=== PATIENT | male | born 1970 | race Caucasian/White ===

== ENCOUNTER 2021-08-04 10:24 | Outpatient (CLI) | payer BC ==
[2021-08-04 11:29] LABS: #Eosinphils 0.3 10x3/uL (0.0-0.5); #Monocytes 0.5 10x3/uL (0.0-1.1); #Neutrophils 4.4 10x3/uL (1.5-8.4); %Basophils 0.4 % (0.0-2.0); %Eosinophils 3.6 % (0.0-6.0); %Lymphocytes 24.7 % (18.0-47.0); %Monocytes 7.8 % (0.0-10.0); %Neutrophils 63.4 % (40.0-75.0); Hemoglobin 14.2 g/dL (13.5-17.5); Mean Corpuscular HGB CONC 33.1 g/dL (32.0-36.0); Mean Corpuscular Hemoglobin 28.9 pg (27.0-33.0); Mean Corpuscular Volume 87.2 fl (81.2-95.1); Platelet Count 175 10x3/uL (150-450); RBC Distribution Width 13.2 % (11.5-14.5); Red Blood Cell (RBC) Count 4.92 10x6/uL (4.32-5.72); White Blood Cell (WBC) Count 6.9 10x3/uL (3.5-10.5)
[2021-08-04 11:50] LABS: ALT (SGPT) 14 U/L (8-55); AST (SGOT) 15 U/L (5-34); Albumin 4.1 g/dL (3.5-5.0); Alkaline Phosphatase 62 U/L (40-110); Anion Gap 13 mmol/L (10-20); BUN (Urea Nitrogen) 16 mg/dL (8.4-25.7); Bilirubin, Total 0.6 mg/dL (0.2-1.2); Calc. Creatinine Clearance 0 mL/min (70-130); Calcium 8.9 mg/dL (7.8-10.44); Carbon Dioxide 27 mmol/L (22-29); Chloride 108 mmol/L (98-107); Globulin 2.7 g/dL (2.4-3.5); Glucose 139 mg/dL (70-105); Protein, Total 6.8 g/dL (6.0-8.3); Sodium 144 mmol/L (136-145)
[2021-08-05 11:01] LABS: SARS-CoV-2 PCR by NAA Not Detected (NotDetected)
== END 2021-08-04 10:25 | disposition home or self-care (01) ==
LOC: LABBT 10:24
PROVIDERS: ATTEND Internal Medicine Cardiovascular Disease
DX: Z01.812 Encounter for preprocedural laboratory examination (principal); I25.5 Ischemic cardiomyopathy; Z20.822 Contact with and (suspected) exposure to COVID-19
CPT/HCPCS: 80053; 85025; U0003; U0005

== ENCOUNTER 2021-08-07 05:50 | Day surgery (SDC) | payer BC ==
[2021-08-06 11:44] VITALS: BMI 34.4
[2021-08-07] MEDS ORDERED: Nitroglycerin 100MG/250ML BOT 250 ML ONE (06:36)
[2021-08-07] MEDS ORDERED: Verapamil 5 MG/2 ML VIAL ONE (06:36)
[2021-08-07] MEDS ORDERED: Heparin 10,000 UNITS/ 10 ML VIAL ONE (06:36)
[2021-08-07] MEDS ORDERED: Fentanyl 100 MCG/2 ML VIAL ONE (07:10)
[2021-08-07] MEDS ORDERED: Midazolam HCl 2 mg/2 ml Vial ONE (07:10)
[2021-08-07] MEDS ORDERED: Iopamidol 370 76% 100 ML VIAL ONE (09:01)
== END 2021-08-07 10:40 | disposition home or self-care (01) ==
LOC: CCL 05:50
PROVIDERS: ATTEND Internal Medicine Cardiovascular Disease
PROC: B2111ZZ Fluoroscopy of Multiple Coronary Arteries using Low Osmolar Contrast (ICD-10-PCS; principal; 2021-08-07)
PROC: 4A023N7 Measurement of Cardiac Sampling and Pressure, Left Heart, Percutaneous Approach (ICD-10-PCS; principal; 2021-08-07)
DX: I25.10 Atherosclerotic heart disease of native coronary artery without angina pectoris (principal); I25.5 Ischemic cardiomyopathy; I48.0 Paroxysmal atrial fibrillation; I11.0 Hypertensive heart disease with heart failure; I50.23 Acute on chronic systolic (congestive) heart failure; E11.9 Type 2 diabetes mellitus without complications; G47.33 Obstructive sleep apnea (adult) (pediatric); Z79.01 Long term (current) use of anticoagulants; Z79.84 Long term (current) use of oral hypoglycemic drugs; Z79.899 Other long term (current) drug therapy; Z86.16 Personal history of COVID-19
CPT/HCPCS: 93458; 99152; J1644; J2250; J3010; Q9967

== ENCOUNTER 2022-04-27 12:24 | Outpatient (CLI) | payer BC ==
[2022-04-27 12:47] LABS: Hemoglobin 14.9 g/dL (13.5-17.5); Mean Corpuscular Hemoglobin 31.1 pg (27.0-33.0); Mean Corpuscular Volume 88.9 fl (81.2-95.1); Mean Platelet Volume 10.1 fl (7.4-10.4); Platelet Count 176 10x3/uL (150-450); RBC Distribution Width 12.2 % (11.5-14.5); Red Blood Cell (RBC) Count 4.79 10x6/uL (4.32-5.72); White Blood Cell (WBC) Count 6.5 10x3/uL (3.5-10.5)
[2022-04-27 13:02] LABS: Prothrombin Time 10.9 sec (9.5-12.1)
[2022-04-27 13:20] LABS: Anion Gap 14 mmol/L (10-20); BUN (Urea Nitrogen) 14 mg/dL (8.4-25.7); Calc. Creatinine Clearance 0 mL/min (70-130); Calcium 8.7 mg/dL (7.8-10.44); Carbon Dioxide 24 mmol/L (22-29); Chloride 109 mmol/L (98-107); Estimated GFR 78; Glucose 143 mg/dL (70-105); Potassium 3.8 mmol/L (3.5-5.1); Sodium 143 mmol/L (136-145)
== END 2022-04-27 12:25 | disposition home or self-care (01) ==
LOC: LABBT 12:24
PROVIDERS: ATTEND Internal Medicine Cardiovascular Disease
DX: Z01.812 Encounter for preprocedural laboratory examination (principal); I48.0 Paroxysmal atrial fibrillation; Z20.822 Contact with and (suspected) exposure to COVID-19
CPT/HCPCS: 80048; 85027; 85610; 87811

== ENCOUNTER 2022-04-30 08:51 | Day surgery (SDC) | payer BC ==
[2022-04-28 14:41] VITALS: BMI 36.6
[2022-04-30] MEDS ORDERED: Heparin 10,000 UNITS/ 10 ML VIAL ONE ×2 (09:13→14:22)
[2022-04-30] MEDS ORDERED: Heparin 25,000 units/D5W 500 ML ONE (09:13)
[2022-04-30] MEDS ORDERED: Protamine Sulfate 50 MG/5 ML VIAL ONE (09:13)
[2022-04-30] MEDS ORDERED: fentaNYL Citrate/PF 100 MCG/2 ML SYRINGE ONE (11:54)
[2022-04-30] MEDS ORDERED: Phenylephrine 10 MG/ML VIAL ONE (11:54)
[2022-04-30] MEDS ORDERED: PHENYLEPHRINE-NS 100 MCG/ML 10 ML SYRINGE ONE (15:05)
[2022-04-30] MEDS ORDERED: Fentanyl 100 MCG/2 ML VIAL ONE (15:14)
[2022-04-30] MEDS ORDERED: HYDROcodone/Acetaminophen 5/325 mg Tablet ONE ×2 (16:59)
== END 2022-04-30 19:55 | disposition home or self-care (01) ==
LOC: SDC 08:51
PROVIDERS: ATTEND Internal Medicine Cardiovascular Disease
PROC: 02K83ZZ Map Conduction Mechanism, Percutaneous Approach (ICD-10-PCS; principal; 2022-04-30)
PROC: B246ZZ4 Ultrasonography of Right and Left Heart, Transesophageal (ICD-10-PCS; principal; 2022-04-30)
PROC: 02583ZZ Destruction of Conduction Mechanism, Percutaneous Approach (ICD-10-PCS; principal; 2022-04-30)
DX: I48.0 Paroxysmal atrial fibrillation (principal); I48.92 Unspecified atrial flutter; I11.0 Hypertensive heart disease with heart failure; I50.22 Chronic systolic (congestive) heart failure; G47.33 Obstructive sleep apnea (adult) (pediatric); E11.9 Type 2 diabetes mellitus without complications; I49.3 Ventricular premature depolarization; I42.8 Other cardiomyopathies; Z79.01 Long term (current) use of anticoagulants; Z79.84 Long term (current) use of oral hypoglycemic drugs; Z79.899 Other long term (current) drug therapy; Z95.818 Presence of other cardiac implants and grafts
CPT/HCPCS: 85347; 93005; 93312; 93613; 93656; 93662; J1644; J2370; J2720; J3010

== ENCOUNTER 2025-08-04 13:28 | Inpatient (IN) | payer BC ==
[2025-08-04 17:06] LABS: #Basophils Less than 0.03 10x3/uL (0.0-0.2); #Eosinophils Less than 0.03 10x3/uL (0.0-0.7); #Monocytes 0.40 10x3/uL (0.11-0.59); #Neutrophils 4.00 10x3/uL (1.40-6.50); %Basophils 0.4 % (0.0-1.0); %Eosinophils 0.0 % (0.0-10.0); %Lymphocytes 8.1 % (21.0-51.0); %Monocytes 8.3 % (0.0-10.0); %Neutrophils 83.0 % (42.0-75.0); Hematocrit 40.4 % (42.0-52.0); Hemoglobin 13.0 g/dL (14.0-18.0); Mean Corpuscular Hemoglobin 28.6 pg (27.0-31.0); Mean Corpuscular Volume 88.8 fL (78.0-98.0); Platelet Count 141 10x3/uL (130-400); Red Blood Cell (RBC) Count 4.55 mill/uL (4.70-6.10); White Blood Cell (WBC) Count 4.82 10x3/uL (4.8-10.8)
[2025-08-04 17:24] LABS: ALT (SGPT) 44 U/L (Less than 45); AST (SGOT) 48 U/L (11-34); Albumin 3.1 g/dL (3.1-4.5); Alkaline Phosphatase 58 U/L (40-110); Anion Gap 15 mmol/L (10-20); BUN (Urea Nitrogen) 28 mg/dL (8.4-25.7); Bilirubin, Total 0.8 mg/dL (0.3-1.2); Calc. Creatinine Clearance 0 mL/min (70-130); Calcium 8.4 mg/dL (7.8-10.44); Carbon Dioxide 20 mmol/L (22-29); Chloride 106 mmol/L (98-107); Globulin 3.2 g/dL (2.4-3.5); Glucose 180 mg/dL (70-105); Potassium 3.9 mmol/L (3.5-5.1); Sodium 137 mmol/L (136-145)
[2025-08-04] MEDS ORDERED: Azithromycin 500 MG VIAL ONE (17:47)
[2025-08-04] MEDS ORDERED: Furosemide 40 MG (4 mL) VIAL ONE (17:47)
[2025-08-04] MEDS ORDERED: Oseltamivir 75 MG CAP ONE (17:47)
[2025-08-04] MEDS ORDERED: Aspirin Chewable 81 MG TAB ONE (17:47)
[2025-08-04] MEDS ORDERED: cefTRIAXone (ROCEPHIN) 2 GM VIAL ONE (17:47)
[2025-08-04] MEDS ORDERED: Enoxaparin 40 MG (0.4 mL) SYRINGE ONE (18:09)
[2025-08-04] MEDS ORDERED: Enoxaparin 80 MG (0.8 mL) SYRINGE ONE (18:09)
[2025-08-04] MEDS ORDERED: Ondansetron PF 4 MG/2 ML Vial ONE (19:09)
[2025-08-04 19:21] LABS: Actual Bicarbonate (HCO3v) 18.2 mEq/L (22-28); Base Excess -5.4 mEq/L (-2.0 to +3.0); Calcium, Ionized (venous) 1.01 mmol/L (1.16-1.32); Chloride (VBG) 106 mmol/L (98-106); Hematocrit-VBG 41 % (42.0-52.0); Hemoglobin (Hb) 13.8 g/dL (13.1-17.2); Potassium (VBG) 3.84 mmol/L (3.70-5.30); Sodium 138 mmol/L (133-146)
[2025-08-04] MEDS ORDERED: Calcium Carbonate 500 MG ChewTAB PO PRN (21:30)
[2025-08-04] MEDS ORDERED: Ondansetron PF 4 MG/2 ML Vial IVP PRN (21:30)
[2025-08-04] MEDS ORDERED: Acetaminophen 325 MG TAB PO PRN (21:30)
[2025-08-04] MEDS: Sacubitril 24MG/Valsartan 26 MG TAB PO SCH ×2 (23:29→23:36)
[2025-08-05] MEDS ORDERED: hydrALAZINE 20 MG/ML VIAL SLOW IVP PRN (00:18)
[2025-08-05] MEDS: hydrALAZINE 20 MG/ML VIAL SLOW IVP PRN (02:17)
[2025-08-05 03:40] LABS: #Basophils Less than 0.03 10x3/uL (0.0-0.2); #Eosinophils Less than 0.03 10x3/uL (0.0-0.7); #Monocytes 0.46 10x3/uL (0.11-0.59); #Neutrophils 5.53 10x3/uL (1.40-6.50); %Basophils 0.2 % (0.0-1.0); %Eosinophils 0.0 % (0.0-10.0); %Lymphocytes 7.1 % (21.0-51.0); %Monocytes 7.1 % (0.0-10.0); %Neutrophils 85.3 % (42.0-75.0); Hematocrit 41.2 % (42.0-52.0); Hemoglobin 13.2 g/dL (14.0-18.0); Mean Corpuscular Hemoglobin 28.9 pg (27.0-31.0); Mean Corpuscular Volume 90.2 fL (78.0-98.0); Platelet Count 151 10x3/uL (130-400); Red Blood Cell (RBC) Count 4.57 mill/uL (4.70-6.10); White Blood Cell (WBC) Count 6.48 10x3/uL (4.8-10.8)
[2025-08-05 03:57] LABS: ALT (SGPT) 38 U/L (Less than 45); AST (SGOT) 42 U/L (11-34); Albumin 2.8 g/dL (3.1-4.5); Alkaline Phosphatase 54 U/L (40-110); Anion Gap 13 mmol/L (10-20); BUN (Urea Nitrogen) 27 mg/dL (8.4-25.7); Bilirubin, Total 0.6 mg/dL (0.3-1.2); Calc. Creatinine Clearance 89 mL/min (70-130); Calcium 8.0 mg/dL (7.8-10.44); Carbon Dioxide 24 mmol/L (22-29); Chloride 106 mmol/L (98-107); Globulin 3.1 g/dL (2.4-3.5); Glucose 144 mg/dL (70-105); Magnesium 1.8 mg/dL (1.6-2.6); Potassium 4.0 mmol/L (3.5-5.1); Sodium 139 mmol/L (136-145)
[2025-08-05 04:53] VITALS: BMI 37.5
[2025-08-05] MEDS: Furosemide 40 MG (4 mL) VIAL SLOW IVP SCH (05:48)
[2025-08-05] MEDS: Sacubitril 24MG/Valsartan 26 MG TAB PO SCH (07:38)
[2025-08-05] MEDS: Carvedilol 6.25 MG TAB PO SCH (07:38)
[2025-08-05] MEDS: Oseltamivir 75 MG CAP PO SCH (07:39)
[2025-08-05] MEDS: Spironolactone 25 MG TAB PO SCH (07:39)
[2025-08-05] MEDS: Apixaban 5 MG TAB PO SCH ×2 (12:11→21:46)
[2025-08-06] MEDS ORDERED: Glucagon 1 MG/ML KIT IM PRN (04:03)
[2025-08-06] MEDS ORDERED: Dextrose 50% Abboject 50 ML SYRINGE SLOW IVP PRN (04:03)
[2025-08-07 05:10] LABS: Anion Gap 12 mmol/L (10-20); BUN (Urea Nitrogen) 16 mg/dL (8.4-25.7); Calc. Creatinine Clearance 130 mL/min (70-130); Calcium 7.8 mg/dL (7.8-10.44); Carbon Dioxide 29 mmol/L (22-29); Chloride 104 mmol/L (98-107); Glucose 113 mg/dL (70-105); Magnesium 1.7 mg/dL (1.6-2.6); Potassium 3.0 mmol/L (3.5-5.1); Sodium 142 mmol/L (136-145)
[2025-08-07 16:15] VITALS: BP 134/81; TEMP 97.6
[2025-08-07] MEDS: FLU (Fluarix Triv) 25-26 (6MOS UP)/PF 45 MCG/0.5 ML Syringe IM ONE (18:03)
[2025-08-07 18:22] LABS: Magnesium 1.6 mg/dL (1.6-2.6); Potassium 3.6 mmol/L (3.5-5.1)
== END 2025-08-07 18:23 | disposition home or self-care (01) | DRG 291 ==
LOC: ERS 13:28 → ERHOLD 20:57 → CCU 22:57 → 2NO 08-05 10:58
PROVIDERS: ADMIT Student in an Organized Health Care Education/Training Program; ATTEND Internal Medicine
PROC: 5A09457 Assistance with Respiratory Ventilation, 24-96 Consecutive Hours, Continuous Positive Airway Pressure (ICD-10-PCS; principal; 2025-08-04)
DX: I50.23 Acute on chronic systolic (congestive) heart failure (principal); J96.01 Acute respiratory failure with hypoxia; I47.20 Ventricular tachycardia, unspecified; N17.9 Acute kidney failure, unspecified; I42.8 Other cardiomyopathies; I48.91 Unspecified atrial fibrillation; I25.10 Atherosclerotic heart disease of native coronary artery without angina pectoris; E78.5 Hyperlipidemia, unspecified; Z79.899 Other long term (current) drug therapy
CPT/HCPCS: 36415; 36416; 71045; 80048; 80053; 82805; 83036; 83735; 83880; 84443; 84484; 85025; 87081; 87428; 87430; 90656; 93005; 93306; 93798; 94660; 96365; 96367; 96372; 96375; J0360; J0456; J0696; J1650; J1940; J2405; Q0162